=== PATIENT | male | born 1950 ===

== ENCOUNTER → 2017-01-14 | Outpatient (CLI) | payer MEDICARE ==
[~2017-01-14] MED LIST: ALLEGRA180 MG PO; AMARYL4 MG PO; ASPIRIN325 MG PO; CRESTOR40 MG PO; FISH OIL 1,0001 EACH PO; GLUCOPHAGE1000 MG PO; LOPRESSOR50 MG PO; MUCOMYST 20200 MG/M1 PO; NEURONTIN300 MG PO; NIACIN1000 MG PO; NITROSTAT0.4 MG SL; PEPCID40 MG PO; TRADJENTA5 MG PO; ULTRACET TABLE1 EACH PO; WELCHOL 625MG625 MG PO; ZESTRIL2.5 MG PO
[2017-01-14 15:27] LABS: ANION GAP 12.8 (10.0-19.0); CALCIUM 9.3 mg/dL (8.5-10.5); CREATININE 1.5 mg/dL (0.6-1.3); POTASSIUM 4.8 mMol/L (3.7-5.1)
== END | disposition disaster alternative care site (69) ==
LOC: LGSOS 15:06
PROVIDERS: Internal Medicine Interventional Cardiology
DX: I25.10 Atherosclerotic heart disease of native coronary artery without angina pectoris (principal)

== ENCOUNTER 2017-01-26 16:01 | Inpatient (IN) | payer MEDICARE, BC ==
[~2017-01-26] VITALS: Ht 180.3 cm; Wt 101.3 kg
--- NOTE | ~2017-01-26 | ESTC ---
Cardiac Perfusion Imaging Demographics Patient Name SYLVIA Haines Gender Male Patient Number [id number] Race Visit Number [id number] Ethnicity Corporate ID Room Number G6331 Accession Number [id number] Height Date of 1950 Weight Age 66 year(s) BSA Referring Chaparro Leon BMI Physician Interpreting Chaparro Leon Date of study 01/27/2017 Physician Supervising MD/MLP Chaparro Champagne MD Technologist Ordering Physician Chaparro Leon Stress Vinay RVT, diesel truck technician RDCS Alice Álvarez RDCS, RVT Stress ECG Reading Chaparro Leon Nurse Siria Philippe RN Physician Procedure Procedure Type: Nuclear Stress Test:Cardiolite Stress Test Procedure Start time: 01/27/2017 10:30 Indications: Chest pain. Risk Factors The patient risk factors include:prior PCI on 10/26/2002;prior CABG on 05/26/2005;peripheral arterial disease, obesity, former tobacco use, treated hypercholesterolemia, treated hypertension, orally-treated diabetes mellitus, dyslipidemia, renal failure, prior heart failure , prior NE and ( years not smokin). Conclusions Summary TID. Small to medium sized anteroseptal moderate to severe reversible defect. Large inferior and inferolateral moderate to severe fixed defect most consistent with prior NE. LVEF:52%. Distal anterior and inferior moderate hypokinesis. Stress Protocols Resting ECG RSR. Pre-stress physical exam: Un changed. Predicted HR: 156 bpm ECG Findings No ECG changes suggestive of ischemia. Arrhythmias No rhythm abnormality. Symptoms SOB. Stress Interpretation SOB with Lexiscan. No ischemia. No arrythmias. Imaging Results Applied corrections - Motion correction applied High risk findings Summed scores - LV dilatation (TID) : 1.44 - Summed stress score: 18 - Summed rest score: 13 - Summed difference score: 5 Stress ejection Ejection fraction:52 % EDV :182 ml ESV :87 ml Stroke volume :95 ml LV mass :204 gr LV size:Enlarged LV LV systolic function impairment: Mild Imaging Protocols Rest Stress Isotope:Tc99m Sestamibi IV Isotope: Tc99m Sestamibi IV Isotope dose:14.2 mCi Isotope dose:40.2 mCi Date:01/27/2017 07:35 Date:01/27/2017 10:15 Technique: SPECT Technique: Gated Supine SPECT Supine IV remains in place after procedure. Procedure Medications - Regadenoson (Lexiscan) 0.4 mg IV over 10-15 sec. I.V. 0.4 mg. Medical History Admission Data Admission date: 01/26/2017 Admission Time: 20:35 Hospital Status: Inpatient. Signatures dtt: Carolyn Mayfield dtd: 01/27/17 1030 Physician Self Edit
--- NOTE | ~2017-01-26 | ER ---
PATIENT'S NAME: CASTILLO WARD [facility] AGE: 66 Y [address] [place] [facility] [place], [place] [address] LOCATION: GPCU ADMIT DATE: 01/26/2017 ER/Outpatient Report DISCHARGE DATE: FAMILY PHYSICIAN: MARCO ANTONIO SIGALA MD ATTENDING PHYSICIAN: Carolyn Mayfield Time of Arrival: 1601 hours. Time of Evaluation: 1608 hours. CHIEF COMPLAINT: Low blood pressure. HISTORY OF PRESENT ILLNESS: The patient is a 66-year-old male, who presents to the emergency department today with a chief complaint of low blood pressure. He reports this has been going on for about 14 days. They have been adjusting his medication. He has been having some dyspnea on exertion and has been undergoing workup by Dr. Mayfield. They have been adjusting his blood pressure medicines with this. He has had some dizziness and lightheadedness with these blood pressure issues. He has also been complaining of some neck pain, some left shoulder pain as well as some mild low back pain. He denies any chest pain. Denies any fevers or chills. Does have some nausea, no vomiting. No diarrhea or constipation. PAST MEDICAL HISTORY: Ggt-hcsrlgx-puhqifobu diabetes, HI, herniated disk, and dyslipidemia. PAST SURGICAL HISTORY: CABG x2 and multiple stents. SOCIAL HISTORY: The patient does have a history of tobacco use, quit 8 years ago. Denies any alcohol or illicit drug use. ALLERGIES: NO KNOWN DRUG ALLERGIES. MEDICATIONS: Please see list. INSTRUCTOR GROUND SERVICES: Carolyn Mayfield M.D. REVIEW OF SYSTEMS: All systems are reviewed by myself and are negative with the exception of PATIENT'S NAME: CASTILLO WARD [facility] AGE: 66 Y [address] ROOM: [address] [place], [place] [address] LOCATION: GPCU ADMIT DATE: 01/26/2017 ER/Outpatient Report DISCHARGE DATE: FAMILY PHYSICIAN: MARCO ANTONIO SIGALA MD ATTENDING PHYSICIAN: Carolyn Mayfield those discussed in the HPI and past medical history. PHYSICAL EXAMINATION: VITAL SIGNS: Weight 102 kg. Blood pressure 118/74, pulse 75, respiratory rate 20, temperature 97.8, and oxygen saturation 96% on room air. GENERAL: The patient is a 66-year-old male, who appears at his stated age, in no acute distress at this time. HEENT: Head is normocephalic and atraumatic. Pupils are equal, round, and reactive to light. Conjunctivae are normal. Mucous membranes moist. NECK: Supple. There is no nuchal rigidity. CARDIOVASCULAR: Regular rate and rhythm. No murmurs, rubs, or gallops. LUNGS: Clear to auscultation bilaterally. No wheezes, rales, or rhonchi. ABDOMEN: Soft, nontender, nondistended. No rebound, rigidity, or guarding. MUSCULOSKELETAL: The patient moves all 4 extremities. SKIN: Warm and dry. There are no rashes or lesions noted. LABORATORY DATA AND X-RAYS: CBC is unremarkable. Coags are unremarkable. CMP: Sodium 133, BUN 49, creatinine 2.3, glucose 388. LFTs are normal. Magnesium is normal. Cardiac enzymes are normal. ProBNP is 326. D-dimer is normal. EKG is obtained, it is interpreted by myself and shows sinus rhythm with a rate of 77, normal axis, QTc is normal. No ST elevation or ST depression. There are nonspecific T-waves. There are Q-waves in III and aVF. Chest x-ray shows no acute process. Echocardiogram that was performed on , the report is reviewed by myself and does show an EF of 40% to 45%. IMPRESSION: 1. Dyspnea on exertion. 2. Acute kidney injury. 3. Orthostatic hypotension. 4. Initial visit. EMERGENCY DEPARTMENT COURSE: The patient is brought back to the examination room. Seen and evaluated by myself. IV is established. Laboratory analysis and imaging are obtained as described above. The patient is given 4 baby aspirin. Orthostatic blood pressures are obtained and are positive with lying down 133/71 with pulse of 72, sitting up 118/62 with pulse of 72, standing up 89/52 with pulse of 75. The patient is given a liter of normal saline. I have discussed the results with the patient. We will obtain a 2-hour cardiac enzymes. I have discussed the case with Dr. Pretty at shift change. He will follow up on 2-hour cardiac enzymes. Please see his dictation. DISPOSITION: Per Dr. Pretty. PATIENT'S NAME: CASTILLO WARD [facility] AGE: 66 Y [address] ROOM: [address] [address] [facility] ADMIT DATE: 01/26/2017 ER/Outpatient Report DISCHARGE DATE: FAMILY PHYSICIAN: MARCO ANTONIO SIGALA MD ATTENDING PHYSICIAN: Carolyn Mayfield DO SHERRY MATHIAS/sarah /[id number] d: 01/27/17833 t: 02/05/17 192, OUTPATIENT REPORT
--- NOTE | ~2017-01-26 | DS ---
PATIENT'S NAME: CASTILLO WARD [facility] AGE: 66 Y [address] ROOM: [address] [address] LOCATION: GPCU ADMIT DATE: 01/26/2017 Discharge Summary DISCHARGE DATE: 01/29/2017 FAMILY PHYSICIAN: Sunil Carrasco MD ATTENDING PHYSICIAN: Carolyn Mayfield DISCHARGE DIAGNOSES: 1. Coronary artery disease, status post coronary artery bypass grafting and multiple PCI in the past. His EF is about 45%. His cardiac catheterization shows one of his two bypasses is open now. 2. Elevated lipids. 3. Ex-smoker. 4. Shortness of breath secondary to chronic obstructive pulmonary disease plus his cardiac conditions. 5. Chronic kidney disease. 6. Chronic back pain. 7. Type 2 diabetes, not under good control. 8. Family history of coronary artery disease. 9. Atrial fibrillation postoperatively after his bypass grafting. 10. Degenerative joint disease of spine. 11. Weight loss of about 25 to 30 pounds since October, etiology of which is unclear as his appetite has been good. DISCHARGE RECOMMENDATIONS: 1. 1800-calorie diabetic diet. 2. Activity as tolerated for now. 3. Follow up with Dr. Davila in 1 month. 4. Follow up with myself in 2 weeks. 5. Before his followup appointment, I have recommended a full PFTs. DISCHARGE MEDICATIONS: 1. Metformin 1 g in the evening and 500 mg every morning. Hold for 48 hours before taking metformin after his cardiac catheterization. 2. Aspirin 325 mg a day. 3. Glimepiride 6 mg twice a day. 4. Berwick-3 3000 mg twice a day. 5. Rosuvastatin 40 mg a day. 6. Metoprolol 50 mg twice a day. 7. Fexofenadine 180 mg every day. 8. Nitroglycerin 0.4 mg sublingual p.r.n. chest pain. 9. Tylenol with tramadol 1 to 2 tablets twice a day as needed. 10. Niacin 2 g every day. 11. Linagliptin 5 mg 2 a day. 12. Gabapentin 300 mg twice a day. 13. Mucomyst for 48 hours longer. PATIENT'S NAME: CASTILLO WARD [facility] AGE: 66 Y [address] ROOM: [address] [address] [facility] ADMIT DATE: 01/26/2017 Discharge Summary DISCHARGE DATE: 01/29/2017 FAMILY PHYSICIAN: Sunil Carrasco MD ATTENDING PHYSICIAN: Carolyn Mayfield 14. Welchol 2 g twice a day. 15. Famotidine 40 mg once a day. 16. Lisinopril 2.5 mg a day. COURSE IN THE HOSPITAL: The patient presented to the emergency room with a lot of back pains as well as some left shoulder pain along with shortness of breath. As he is a vasculopath, he was hospitalized to rule out VA, which he did. He was also somewhat hypotensive when he was in the hospital, so significant readjustment of his blood pressure medications were done especially his enalapril. He was seen by the Hospitalist, who managed his diabetes. As it became clear that he really needed to probably proceed with cardiac catheterization, Nephrology's were involved as he had stage III CKD. X-rays of his back showed mostly DJD and some herniated disks. He was not significantly orthostatic even though he was running a lower blood pressure with systolic blood pressures in the low normal range. Following his cardiac catheterization report, the initial plan is to treat him aggressively with medications and then evaluating for other causes of his shortness of breath. MD RONI WILSON/sarah /[id number] d: 02/01/172027 t: 02/04/17 0745, DISCHARGE SUMMARY
--- NOTE | ~2017-01-26 | HP ---
PATIENT'S NAME: CASTILLO ANGEL [facility] AGE: 66 Y [address] ROOM: [address] [place], [place] [address] [facility] ADMIT DATE: 01/26/2017 History & Physical DISCHARGE DATE: FAMILY PHYSICIAN: MARCO ANTONIO SIGALA MD ATTENDING PHYSICIAN: Carolyn Mayfield DATE OF SERVICE: 01/26/2017 HISTORY OF PRESENT ILLNESS: Mr. Angel is a 66-year-old male patient whom I saw on January 14 for reestablishing with me. He has a prior history of multiple MIs involving the inferior wall, followed by stenting procedures. Eventually, in 2004, he underwent coronary artery bypass grafting and has been doing reasonably well. Since May of 2016, he has been noticing a fair amount of neck pain and also pain across the top of his shoulders when he uses his upper extremities to work with. He also has low back pain as well which makes for a lot of different kinds of pain symptoms. His stamina and shortness of breath are also worse. Currently, he seems to be in Functional Class II to III with no paroxysmal nocturnal dyspnea or orthopnea. If he is using his upper extremities to work, the pain across the top of the shoulder starts, and it stops him at some point fairly quickly. He is on maximal beta blockade. His significant other, who is with him, states that his blood pressures tend to run rather low, sometimes as low as 70s to 80s systolic. Whenever he had MS before, his pains were mostly across the shoulders and coming around to the front, associated with nausea. He denies any lightheadedness, even though he is dizzy. He has no syncope, palpitations, or ankle swelling. The patient has a history of type 2 diabetes; elevated cholesterol, which is hard to decrease; ongoing tobaccoism until 2002; and significant family history of premature coronary artery disease. He also has peripheral vascular disease. His blood pressure has been normal. He has no prior definitive history of congestive heart failure I know of, and he does not recall having atrial fibrillation diagnosed at any time. He denies rheumatic fever or heart murmur as well. His last echocardiogram in December of 2016 showed ejection fraction of about 45%. MEDICATIONS: 1. Aspirin 325 mg a day. 2. Mary 180 mg a day. PATIENT'S NAME: CASTILLO ANGEL [facility] AGE: 66 Y [address] ROOM: [place] [address] LOCATION: GPCU ADMIT DATE: 01/26/2017 History & Physical DISCHARGE DATE: FAMILY PHYSICIAN: MARCO ANTONIO SIGALA MD ATTENDING PHYSICIAN: Carolyn Mayfield 3. Amaryl 2.5 mg b.i.d. 4. Tradjenta 10 mg a day. 5. Metformin 1500 mg every morning and 1000 mg in the evening. 6. Metoprolol 75 b.i.d. 7. Niacin 2 g b.i.d. 8. Nitroglycerin as needed. 9. Knapp-3 fatty acids. 10. Rosuvastatin 40 mg a day. 11. Tramadol 50 mg p.r.n. ALLERGIES: NO KNOWN DRUG ALLERGIES. PAST MEDICAL HISTORY: 1. DJD. 2. Rotator cuff surgery. 3. History of neuropathy. 4. Appendectomy. 5. History of cardioversion from atrial fibrillation after his bypass surgery. SOCIAL HISTORY: The patient lives with his girlfriend. He denies abusing alcohol. His appetite has been poor. Weight has been coming down a little bit. Sleep is fair. FAMILY HISTORY: Positive for premature coronary artery disease in his mother. REVIEW OF SYSTEMS: A 12-point review of systems reveals: 1. Lack of energy. 2. History of vision problems with some dizziness brought on by bright lights. 3. Allergies. 4. Joint pains and back pains. 5. Muscle aches. 6. Occasional rash. 7. Loss of balance. PHYSICAL EXAMINATION: VITAL SIGNS: His blood pressure is 110/70, heart rate is in the 70s and regular, and respirations are 18. HEENT: Normal. NECK: Supple with no JVD, thyromegaly, lymphadenopathy, or carotid bruit. PATIENT'S NAME: CASTILLO ANGEL [facility] AGE: 66 Y [address] ROOM: [place] [address] LOCATION: GPCU ADMIT DATE: 01/26/2017 History & Physical DISCHARGE DATE: FAMILY PHYSICIAN: MARCO ANTONIO SIGALA MD ATTENDING PHYSICIAN: Carolyn Mayfield CARDIAC: PMI is not well located. First and second heart sounds are regular. There are no added sounds or murmurs. CHEST: Clear to auscultation. ABDOMEN: Soft and nontender. EXTREMITIES: No edema. CENTRAL NERVOUS SYSTEM: Intact. ASSESSMENT: 1. Atypical symptoms as far as heart is concerned. 2. The patient is a previous vasculopath. He had really well-controlled cholesterol levels, but I think he discontinued WelChol which seemed to be the most effective drug for him to lower his LDL level. Unfortunately, the LDL level has gone up again. 3. Dizziness, probably secondary to vestibular or neurological problems. 4. Hypotension, probably due to his medications. So, his enalapril was held when he was last seen on January 14 in the office. 5. The patient is currently pain-free. RECOMMENDATIONS: We will rule him out for MS and do a stress test. In the meantime, we will have the hospitalist see him regarding his back pains to see whether they can identify a problem. MD RONI WILSON/sarah /[id number] D: 326 T: 605 HISTORY & PHYSICAL
--- NOTE | ~2017-01-26 | ER ---
PATIENT'S NAME: CASTILLO WARD [facility] AGE: 66 Y [address] ROOM: [address] [place], [place] [address] LOCATION: GPCU ADMIT DATE: 01/26/2017 ER/Outpatient Report DISCHARGE DATE: FAMILY PHYSICIAN: MARCO ANTONIO SIGALA MD ATTENDING PHYSICIAN: Carolyn Mayfield HISTORY OF PRESENT ILLNESS: This patient is a 66-year-old male who came in with orthostatic hypotension with intermittent systolic blood pressure into the mid 80s along with pain across his upper back, neck, and shoulder pain. The patient is known to have coronary artery disease, has had multiple myocardial infarctions, multiple caths with stenting, and 2-vessel coronary bypass graft. He had a normal echocardiogram with ejection fraction of 40% to 45% this past Thursday. Scheduled for a nuclear cardiac stress test this coming Thursday. Brought to the emergency room because of low blood pressure, dizziness, neck and shoulder pain, and upper back pain. See Dr. Arenas's dictation in regards to the patient's chief complaint, history of present illness, past medical history, physical exam, laboratory, x-ray, and EKG studies. Dr. Arenas transferred the patient's care over to me at shift change asking me to follow up with the patient's 2-hour EKG, cardiac enzymes, final diagnosis, and treatment plan. The patient's cardiac enzymes were normal x2, 2 hours apart. EKG showed no acute changes other than the lateral ischemic changes and previous myocardial infarction changes x2, 2 hours apart. The patient did have elevated BUN, creatinine, and low GFR. His D-dimer was normal. He did have orthostatic changes here in the emergency department. IMPRESSION: 1. Atherosclerotic ischemic heart disease with coronary artery disease with exertional dyspnea, orthostatic hypotension, neck, shoulder, arm, and upper back pain with some lateral ischemic changes on EKG. Cardiac enzymes were normal x2, 2 hours apart. Need to rule out acute cardiac problems possibly with nuclear stress test or cardiac catheterization. 2. Kiw-wdqeqgb-gboimwnci diabetes mellitus. 3. Chronic kidney disease. 4. Dyslipidemia. PLAN: I did discuss the patient with Dr. Mayfield. We will admit to PCU telemetry for further evaluation. Discussion ensued with the patient concerning my findings and recommendations, he understands. ZOE CASSIDY MD PATIENT'S NAME: CASTILLO WARD [facility] AGE: 66 Y [address] ROOM: [place] [address] [facility] AD[facility] DATE: 01/26/2017 ER/Outpatient Report DISCHARGE DATE: FAMILY PHYSICIAN: MARC OANTONIO SIGALA MD ATTENDING PHYSICIAN: Carolyn Mayfield/sarah /[id number] d: 01/27/17 0139 t: 01/29/17 1804, OUTPATIENT REPORT
--- NOTE | ~2017-01-26 | PUL ---
PATIENT'S NAME: CASTILLO WARD [facility] AGE: 66 Y [address] ROOM: [place] [address] LOCATION: GPCU ADMIT DATE: 01/26/2017 Pulmonary DISCHARGE DATE: 01/29/2017 FAMILY PHYSICIAN: Sunil Carrasco MD ATTENDING PHYSICIAN: Carolyn Mayfield NAME OF PROCEDURE: Overnight Pulse Oximetry DATE OF PROCEDURE: January 26 to January 27, 2017 REASON FOR EXAM: Nocturnal hypoxemia RESULTS: The test was performed on room air. The recording time was 8 hours and 40 seconds, with a total valid sampling time of 8 hours, and 24 seconds. The highest pulse was 98, lowest pulse was 54, with a mean pulse of 65. The highest SpO2 was 99%, lowest SpO2 of 84%, with a mean SpO2 of 94%. The patient spend 48 seconds with SpO2 less than 89%. The desaturation event index was normal at 4.7. PHYSICIAN INTERPRETATION: The patient does not have evidence of significant nocturnal hypoxia and would not qualify for supplemental oxygen as per Medicare criteria. TYLER SHABAZZ MD RFRoel/brenda /[id number] dtt: 01/29/17 1425 , TYLER SHABAZZ dtd: 01/29/17 1338
--- NOTE | ~2017-01-26 | CON ---
PATIENT'S NAME: CASTILLO WARD [facility] AGE: 66 Y [address] ROOM: [place] [address] LOCATION: GPCU ADMIT DATE: 01/26/2017 Consultation DISCHARGE DATE: 01/29/2017 FAMILY PHYSICIAN: Sunil Carrasco MD ATTENDING PHYSICIAN: Carolyn Mayfield DATE OF CONSULTATION: 01/28/2017 REFERRING PHYSICIAN: Mauricio Dubon MD REQUESTING PHYSICIAN: Dr. Mayfield. REASON FOR CONSULTATION: Elevated BUN and creatinine. HISTORY OF PRESENT ILLNESS: The patient is a 66-year-old white male with history of diabetes diagnosed about 5 years ago. He has a history of extensive coronary artery disease. Apparently, he had mitral infarction approximately 6 times. He had coronary artery bypass grafting twice. His baseline creatinine from 2010 was 0.9. Patient came in with angina, equivalent chest pain, and his creatinine was 1.5. Creatinine maximum was 2.3. He is scheduled to have a cardiac catheterization tomorrow. Dr. Mayfield is concerned about contrast nephropathy and asked me to see the patient for a nephrology consultation. His outpatient medication does not include any nonsteroidals or CASTILLO-2 inhibitors. He is also not on any SADIE inhibitor or ARB. REVIEW OF SYSTEMS: GENERAL: He denies any fever, chills, or rigors. HEENT: Denies any sore throat or sinus congestion. CARDIOVASCULAR: He is having pain in between his shoulder blades and especially in his neck. RESPIRATORY: Denies any shortness of breath, cough, or wheezing. GI: Denies abdominal pain, nausea, or vomiting. : Denies any dysuria or frequency. MUSCULOSKELETAL: He has pain in the neck. SKIN: Denies any allergy to seafood. Denies any lymph node enlargement or easy bruising. Denies any heat or cold intolerance. PSYCH: Denies any sadness, crying spells, poor concentration, or panic attack. ALLERGIES: NO KNOWN DRUG ALLERGIES. PRESENT MEDICATIONS: PATIENT'S NAME: CASTILLO WARD [facility] AGE: 66 Y [address] ROOM: [place] [address] LOCATION: GPCU ADMIT DATE: 01/26/2017 Consultation DISCHARGE DATE: 01/29/2017 FAMILY PHYSICIAN: Sunil Carrasco MD ATTENDING PHYSICIAN: Carolyn Mayfield 1. Metformin 1000 mg twice a day. 2. Aspirin 325 mg a day. 3. Glimepiride 6 mg twice a day. 4. Thor[place]-3 fatty acid. 5. Rosuvastatin 40 mg a day. 6. Metoprolol tartrate 75 mg twice a day. 7. Mary 180 mg a day. 8. Nitroglycerin 0.4 mg sublingual p.r.n. 9. Tramadol with acetaminophen 1-2 t.i.d. p.r.n. 10. Niacin 1000 mg two twice a day. 11. Tradjenta 10 mg daily. 12. Neurontin 300 mg twice a day. PAST MEDICAL HISTORY: Coronary artery disease, hypertension, diabetes mellitus, hyperlipidemia, degenerative joint disease of the spine. PAST SURGICAL HISTORY: Coronary artery bypass grafting, cardiac catheterization with angioplasty and stent placement. FAMILY HISTORY: Family history positive for diabetes and coronary artery disease. No family history of kidney disease or dialysis. SOCIAL HISTORY: He quit tobacco years ago. He does not drink much alcohol. He lives with his in [place], [place]. PHYSICAL EXAMINATION: GENERAL APPEARANCE: This 66-year-old, mildly obese white male, lying in the hospital bed, not in acute distress. VITAL SIGNS: Temperature 97.5, pulse 66, systolic blood pressure 106, diastolic of 63, respiratory rate of 18. HEAD: Normocephalic. HEENT: Pupils are round and equal. Normal eyelid and conjunctivae. Oral cavity clear. Moist mucosa. NECK: Trachea is central. No thyromegaly. Unable to evaluate jugular venous pulsation. HEART: Sounds are audible in all the areas without any gallop or murmur. There is no peripheral rub. Pulses regular in rhythm. LUNGS: Bilaterally clear to auscultate. No intercostal retraction. ABDOMEN: Soft, nontender. Could not palpate the liver or spleen. EXTREMITIES: He has no clubbing or cyanosis. SKIN: No sign of vasculitis. PATIENT'S NAME: CASTILLO WARD [facility] AGE: 66 Y [address] ROOM: [place] [address] LOCATION: GPCU ADMIT DATE: 01/26/2017 Consultation DISCHARGE DATE: 01/29/2017 FAMILY PHYSICIAN: Sunil Carrasco MD ATTENDING PHYSICIAN: Carolyn Mayfield LYMPHATICS: I did not examine lymphatics. HIGHER PSYCHIATRIC FUNCTION: He has normal speech and memory. LABORATORY DATA: WBC 7.8, hemoglobin 14.4, hematocrit 43, platelet count 195. Glucose 338, BUN 35, creatinine 1.5, sodium 136, potassium 4.3, chloride 103, bicarb 23, calcium 9.2. His urinalysis did not show any proteinuria. ASSESSMENT: 1. Acute kidney injury. The patient had baseline creatinine of 0.9 in 2010, creatinine is up to 1.5 on admission and the maximum was 2.3. Patient's reports that she has been checking his blood pressure for the last one week and he has had systolic blood pressure as low as 70s. 2. Diabetes mellitus. 3. Coronary artery disease. 4. Hypertension. 5. Hyperuricemia. 6. Hyperlipidemia. PLAN: I explained to the patient that currently his kidneys are working about 50% of what it should have been for his age. His creatinine could be because of his hypotensive episode. He needs a cardiac catheterization and he is at high risk of having contrast nephropathy. Will use Mucomyst and intravenous bicarbonate per protocol. He is not on an SADIE inhibitor. I will request to use minimum dose of intravenous contrast, and if he needs intervention, then we can do it at a different setting rather than in the same setting. I will order renal ultrasound to look at his renal anatomy. I would like to thank Dr. Mayfield for allowing me to participate in this patient's care. M MD AMADOR MCKENNAI/sarah /[id number] CC: Carolyn Mayfield MD d: 01/29/17 0044 t: 02/11/17 1547, CONSULTATION REPORT
--- NOTE | ~2017-01-26 | CATH ---
Cardiac Diagnostic Report Demographics Patient Name SYLVIA Haines Gender Male Date of 1950 Age 66 year(s) Patient Number [id number] Date of Study 01/28/2017 Visit Number [id number] Room Number G6[address] [place] [id number] Ht 180.34 cm Wt 101.3 kg Referring Bayleejennifer Mauricio Hurtado MD Primary Physician Physician Danilo Smith MD Performing [place] Secondary Physician Physician Carolyn HICKS Diagnostic [place] Assisting Physician Physician Carolyn HICKS Interventional Physician Finisher Accordion Physician Findings and Conclusions Diagnostic Findings and Conclusion LVEDP 11 [place] RCA 100% SVG to RCA 100% Mild diffuse disease involving left system. MCKENZIE ti LAD patent Diagnostic Recommendations Aggressive secondary preventive measures. Procedure Description The patient was brought to the diagnostic cardiac catheterization-EP laboratory in the fasting, non-sedated state. Informed consent was obtained in the written and verbal form after the risks and benefits were explained. The patient had no further questions and agreed to proceed. The planned puncture-incision site(s) were shaved and prepped with ChloraPrep and draped in the usual sterile manner. Conscious sedation, supplemental oxygen, and pain control medications were delivered by a registered nurse under physician guidance. Surface ECG rhythm, blood pressure measurement, and pulse oximetry were monitored throughout the procedure. Arterial access. The access site was infiltrated with lidocaine. The vessel was entered with the Seldinger technique. A sheath was advanced into the vessel and used for catheter placement. Selective left coronary angiography. A catheter was advanced into the left coronary vessel ostium under Fluoroscopic guidance. Contrast was injected by hand. Images were obtained in multiple projections. Selective right coronary angiography. A catheter was advanced into the right coronary vessel ostium under fluoroscopic guidance. Contrast was injected by hand. Images were obtained in multiple projections. Selective MCKENZIE graft angiography. A catheter was advanced into the left internal mammary graft ostium under fluoroscopic guidance. Contrast was injected by hand. Images were obtained in multiple projections. Left heart catheterization. A catheter was advanced across the aortic valve to the left ventricle under fluoroscopic guidance. Resting hemodynamics were obtained. Arterial artery hemostasis. Hemostasis was achieved. The patient was transferred to a regular nursing floor via cart accompanied by a nurse. The patient left the laboratory in stable condition. Diagnostic Cath Status: Urgent Procedure Procedure Type Indications: Positive nuclear perfusion study and back pain with exertion. The procedure was explained in detail to the patient. Risks, complications and alternative treatments were reviewed. Written consent was obtained. Medications Reviewed with Patient prior to Procedure. Angiographic Findings Dominance: Right Cardiac Arteries and Lesion Findings LMCA: Abnormal. Lesion on LMCA: Distal subsection.50% stenosis . LAD: Abnormal.The 1st Diag appears abnormal. The 2nd Diag appears abnormal. Lesion on Dist LAD: 100% stenosis . Lesion on 1st Dia% stenosis .The lesion was diffuse. Lesion on 2nd Dia% stenosis .The lesion was diffuse. LCx: Abnormal. RCA: Lesion on Prox RCA: 100% stenosis . Comments:Calcification involving proximal coronaries . Stent seen in RCA. Graft Lesions Lesion on MCKENZIE to Dist LAD: Proximal anastomosis.100% stenosis . Cardiac Grafts - There is a graft that originates at the MCKENZIE and attaches to the Dist LAD (The MCKENZIE graft is patent.). - There is a graft that originates at the Aorta Right and attaches to the 1st RPL (The SVG graft is occluded 100% in 2009). Coronary Tree Procedure Data Procedure Date Date: 01/28/2017Start: 04:10 PMEnd: 04:39 PM Entry Locations - Retrograde Percutaneous access was performed through the Left Femoral artery (Primary location). A 7 Fr sheath was inserted. Hemostasis was successfully obtained using Perclose ProGlide (Cifuentes). Closure Comments: Adrian closure. Procedure Medications Order and Administration + + + + + !Time !Medication !Dosage !Route ! + + + + + !01/28/2017 04:02 PM !Versed !1 mg !I.V. ! + + + + + !01/28/2017 04:07 PM !Fentanyl !50 mcg !I.V. ! + + + + + !01/28/2017 04:24 PM !D5W/0.9% NaCl w/20mEq KCl !150 ml/hr !I.V. drip ! + + + + + Devices Used - A6 Fr. BS JL 4 Diag. Catheterwas used for:Left coronary angiography. - A6 Fr. BS JR 4 Diag. Catheterwas used for:MCKENZIE. Contrast Material - Isovue 20922 ml Fluoroscopy Time: Diagnostic: 4:54 minutes. Total: 4:54 minutes. Fluoroscopy Dose: Diagnostic: 990 mGy. Total: 990 mGy. Estimated Blood Loss: 15 ml. Medical History Performed Procedures and Imaging Results - Stress testing with SPECT MPIwas performed. Results were: Positive. Risk/Extent of ischemia was: Unavailable. Allergies - No known allergies. Risk Factors The patient risk factors include:prior PCI on 10/26/2002; prior CABG on 05/26/2005;peripheral arterial disease, obesity, treated hypercholesterolemia, treated hypertension, family history of premature CAD, orally-treated diabetes mellitus, last creatinine: 1.8 mg/dl, creatinine clearance: 59.4 ml/min, dyslipidemia, renal failure, former tobacco use ( years not smokin), prior heart failure and prior OR . Admission Data Admission Date: 01/26/2017 Admission Time: 08:35 PM Admit Source: Emergency department Insurance Payors: Medicare. Admission Medications + +------+------+ + + + + !Medication !Dosage!Times !Last !Last !Administered !Comments ! ! ! !Per !Delivery !Delivery ! ! ! ! ! !Day !Date !Time ! ! ! + +------+------+ + + + + !Beta ! ! ! ! !Yes ! ! !Letitia ! ! ! ! ! ! ! !(any) ! ! ! ! ! ! ! + +------+------+ + + + + !Aspirin ! ! ! ! !Yes ! ! !(any) ! ! ! ! ! ! ! + +------+------+ + + + + Clinical Evaluation Leading to Procedure - The patient's CAD presentation was assessed as: Unstable angina. - The patient's anginal syndrome during the past two weeks was assessed as: Class III according to the [place] Cardiovascular Society Classification System (CCS). Anti-anginal medications were prescribed during the past two weeks. The medication is: Beta Blockers. Hemodynamics Condition: Rest O2 Consumption: Estimated: 254.41Heart Rate: 66 bpm Pressures (mmHg) +-----+ + !Site !Pressure ! +-----+ + !AO !93/55 (71) ! +-----+ + !AO !103/46 (68) ! +-----+ + !LV !108/4 ,11 ! +-----+ + !LV !97/2 ,6 ! +-----+ + !AO !113/56 (79) ! +-----+ + !LV !102/3 ,8 ! +-----+ + Valve Gradients and Areas + +---------+---------+---------+ +---------+ + !Valve !Peak !Mean !Area !Index !Flow !Source ! + +---------+---------+---------+ +---------+ + !Aortic !0 !0 ! ! ! ! ! + +---------+---------+---------+ +---------+ + !Aortic !0 !0 ! ! ! ! ! + +---------+---------+---------+ +---------+ + Shunts Oxygen Values O2 Capacity 195.84 O2 Consumption 254.41 Discharge Data Discharge Date: 01/29/2017 Hospital Status: Inpatient Signatures dtt: Carolyn Mayfield dtd: 01/28/17 1610 Physician Self Edit
--- NOTE | ~2017-01-26 | CON ---
PATIENT'S NAME: CASTILLO WARD [facility] AGE: 66 Y [address] ROOM: [address] [place], [place] [address] LOCATION: GPCU ADMIT DATE: 01/26/2017 Consultation DISCHARGE DATE: FAMILY PHYSICIAN: MARCO ANTONIO SIGALA MD ATTENDING PHYSICIAN: Carolyn Mayfield DATE OF CONSULTATION: 01/26/2017 REFERRING PHYSICIAN: Mauricio Dubon MD CHIEF COMPLAINT: Atypical chest pain. HISTORY OF PRESENTING ILLNESS: This 66-year-old white male with known history of coronary artery disease and diabetes mellitus type 2, who was admitted to [facility] earlier today by Dr. Mayfield with symptoms of atypical chest pain. He does have a previous history of coronary artery disease with GA x6 in the past. He has had anginal complaints, which include some neck pain and annular/bandlike chest pain. Although he has not experienced those symptoms, he has been having paroxysms of neck and arm pain, which come and go. A couple of nights ago while he was fishing, he had an episode of severe flank pain, which radiated up into his left shoulder and arm. Symptoms usually occur while he is exerting himself and improve with rest. He also experiences some paroxysms of severe neck and arm pain with positioning, that improve with rest. Today, he contacted Dr. Mayfield's office, and it was requested that he come to the emergency room. He was subsequently admitted to the hospital for definitive evaluation and management. On his arrival to the floor, he reports feeling "fine." He does complain of headache pain but it is minor. He also complains of some neck pain, which is also positional. He reports that he has to use a special pillow at home in order to sleep. He denies bryson chest pain. No abdominal pain. His appetite has been good as of late. He has been eating and drinking normally. No difficulties with chewing or swallowing. No abdominal pain. He stools and voids normally. He denies numbness or tingling in his extremities, but he does occasionally get tingling pains in the left leg. Similarly, he has paroxysms of sharp pain and tingling in the bilateral arms with positioning. This last occurred while he was resting his arms on a fish cleaning table. ALLERGIES: NO KNOWN DRUG ALLERGIES. ILLNESSES: 1. Coronary artery disease, status post coronary artery bypass grafting and PATIENT'S NAME: CASTILLO WARD [facility] AGE: 66 Y [address] ROOM: [address] [place], [place] [address] LOCATION: GPCU ADMIT DATE: 01/26/2017 Consultation DISCHARGE DATE: FAMILY PHYSICIAN: MARCO ANTONIO SIGALA MD ATTENDING PHYSICIAN: Carolyn Mayfield PCI with stents. 2. Diabetes mellitus type 2. 3. Essential hypertension. 4. Hyperlipidemia. 5. Degenerative disk disease of the spine. CURRENT MEDICATIONS: 1. Aspirin 325 mg p.o. daily. 2. Mary 180 p.o. daily. 3. Amaryl 2.5 mg p.o. b.i.d. 4. Tradjenta 10 mg p.o. daily. 5. Metformin 1500 mg p.o. q.a.m., 1000 mg p.o. q.p.m. 6. Metoprolol 75 mg p.o. b.i.d. 7. Niacin 2000 mg p.o. b.i.d. 8. Nitroglycerin p.r.n. 9. [place]-3 fatty acids with fish oil daily. 10. Rosuvastatin 40 mg p.o. daily. 11. Tramadol 50 mg p.o. daily p.r.n. pain. FAMILY HISTORY: Significant for coronary artery disease and diabetes mellitus. SOCIAL HISTORY: He is unmarried but lives with his common-law in [place]. There is no significant history of alcohol or tobacco use. REVIEW OF SYSTEMS: As per HPI. All other organ systems reviewed and are negative. PHYSICAL EXAMINATION: VITAL SIGNS: Temperature 97.7, pulse 70, respirations 16, blood pressure 115/80, weight is 101.3 kilos. GENERAL: He is anxious, but cooperative, lying in bed, no acute distress. SKIN: Supple, pink, warm, and dry. There are no obvious rashes. HEENT: Otherwise, normocephalic. Sclerae nonicteric. Pupils equal, round, and reactive to light and accommodation. Extraocular movements appear intact. Nasal turbinates normal in appearance. Oropharynx clear. Mucous membranes are pink and moist. NECK: Supple. Plethoric and obese. No masses or adenopathy. No thyromegaly. No JVD. CHEST: Wall is symmetrical. HEART: Regular without murmurs. There is normal S1 and S2. No S3 or S4. LUNGS: Diminished. No crackles or wheezes are heard. ABDOMEN: Soft and obese. Nontender. Bowel sounds are present. No mass or hepatosplenomegaly. PATIENT'S NAME: CASTILLO WARD [facility] AGE: 66 Y [address] ROOM: [address] [address] LOCATION: GPCU ADMIT DATE: 01/26/2017 Consultation DISCHARGE DATE: FAMILY PHYSICIAN: MARCO ANTONIO SIGALA MD ATTENDING PHYSICIAN: Carolyn Mayfield and RECTAL: Not done. EXTREMITIES: Display no significant clubbing, cyanosis, or edema. NEUROLOGICAL: Cranial nerves 2 through 12 appear grossly intact. Sensation appears normal. Strength is 4 to 5 out of 5 bilaterally in the upper and lower extremities. DTRs are 0 to 1+ symmetrical. Gait is not observed. LABORATORY AND X-RAY DATA: D-dimer was 0.43. ProBNP was minimally elevated at 326. A troponin I was less than 0.04. Chemistries revealed BUN and creatinine of 49 and 2.3 respectively, sodium and potassium of 133 and 4.6, chloride and CO2 of 96 and 25. AST and ALT of 15 and 26 respectively, bilirubin is 0.5. CBC showed a white blood cell count 7.8, hemoglobin is 14.4, hematocrit 43.0, platelets 185. ASSESSMENT AND PLAN: 1. Diabetes mellitus type 2. Historically controlled with oral hypoglycemics. We will plan to hold metformin in light of his acute kidney injury (see below) and utilize Accu-Cheks and sliding scale insulin while he is inpatient. We will determine whether he can be safely transitioned back to the metformin once he is closer to discharge. 2. Acute kidney injury with chronic kidney disease, stage 3. Improved with IV fluid hydration in the ER. We will follow serially. 3. Atypical chest pain. We will plan to proceed with serial enzymes and monitor on telemetry overnight. Supportive cares, which have already been initiated. Plan Lexiscan Cardiolite stress testing per Dr. Mayfield tomorrow. Consider other possible etiologies for his pain including musculoskeletal causes. 4. Degenerative disk disease of the spine. He has a known diskopathy in the lumbar spine, although I do not have any of those records available. Some of his symptoms do sound radicular including flank radiculopathy and bilateral upper extremities radiculopathy. We will surveil with plain x- ray in the morning and consider a more focused examination with MRI at some point. It is not clear if this needs to be performed while he is inpatient or perhaps could be picked up with his primary care provider on an outpatient basis. 5. Essential hypertension. Appears to be adequately controlled. He did recently have a significant change in his antihypertensive hypertensive regimen. We will follow him for now. 6. Fitful sleep. He is high risk for obstructive sleep apnea. He will have overnight trend oximetry tonight. Plan follow up on that tomorrow. Consider outpatient sleep study. 7. Deep venous thrombosis prophylaxis. Per the VTE protocol. PATIENT'S NAME: CASTILLO WARD [facility] AGE: 66 Y [address] ROOM: [place] [address] [facility] AD[facility] DATE: 01/26/2017 Consultation DISCHARGE DATE: FAMILY PHYSICIAN: MARCO ANTONIO SIGALA MD ATTENDING PHYSICIAN: Carolyn Mayfield MD DOMINIC ARRINGTON/sarah /[id number] d: 01/27/17 0502 t: 01/28/17 2153, CONSULTATION REPORT
[2017-01-26 16:17] LABS: BASOPHIL # 0.1 K/uL (0.0-0.2); BASOPHIL % 0.8 %; EOSINOPHIL # 0.4 K/uL (0.0-0.5); EOSINOPHIL % 5.4 %; HEMOGLOBIN 14.4 g/dL (11.0-16.0); IMMATURE GRANULOCYTE % 0.5 %; LYMPHOCYTE # 1.3 K/uL (0.8-4.0); LYMPHOCYTE % 17.2 %; MCHC 33.5 gm/dL (32.0-36.5); MCV 86.5 fl (83.0-98.0); MONOCYTE # 0.7 K/uL (0.0-1.0); MONOCYTE % 9.2 %; NEUTROPHIL # (ANC) 5.2 K/uL (1.4-9.0); NEUTROPHIL % 66.9 %; NRBC % 0 /100WBC (0-0.00); PLATELET COUNT 185 K/uL (150-450); RBC 4.97 M/uL (3.50-5.50); RDW-CV 13.2 % (11.9-14.6); WBC 7.8 K/uL (4.0-11.0)
[2017-01-26 16:27] LABS: INR - (THERAPEUTIC) 0.9 (0.9-1.1); PROTIME 9.8 SECONDS (9.6-11.1); PTT 26 SECONDS (25-32)
[2017-01-26 16:37] LABS: ALK PHOS 52 IU/L (33-138); ALT 26 IU/L (12-78); ANION GAP 16.6 (10.0-19.0); AST 15 IU/L (10-40); BLOOD UREA NITROGEN 49 mg/dL (6-24); CALCIUM 9.5 mg/dL (8.5-10.5); CHLORIDE 96 mMol/L (96-110); CO2 25 mMol/L (22-32); CPK 197 IU/L (35-332); CREATININE 2.3 mg/dL (0.6-1.3); MAGNESIUM 2.2 mg/dL (1.3-2.6); POTASSIUM 4.6 mMol/L (3.7-5.1); SODIUM 133 mMol/L (135-145); TOTAL BILIRUBIN 0.5 mg/dL (0.0-1.5); TOTAL PROTEIN 7.7 g/dL (6.0-8.4)
[2017-01-26 16:40] LABS: ESTIMATED GFR (MDRD EQUATION) 29
[2017-01-26 18:29] LABS: ALBUMIN 3.6 gm/dL (3.5-5.0); ANION GAP 12.6 (10.0-19.0); CALCIUM 8.7 mg/dL (8.5-10.5); CREATININE 1.8 mg/dL (0.6-1.3); POTASSIUM 4.6 mMol/L (3.7-5.1); TOTAL BILIRUBIN 0.4 mg/dL (0.0-1.5); TOTAL PROTEIN 6.9 g/dL (6.0-8.4)
[2017-01-26 18:30] LABS: CPK 173 IU/L (35-332)
[2017-01-26] MEDS ORDERED: GLUCOPHAGE1000 MG PO ×2 (22:43→22:44)
[2017-01-26] MEDS ORDERED: ASPIRIN325 MG PO (22:44)
[2017-01-26] MEDS ORDERED: AMARYL4 MG PO (22:45)
[2017-01-26] MEDS ORDERED: FISH OIL 1,0001 EACH PO (22:46)
[2017-01-26] MEDS ORDERED: CRESTOR40 MG PO (22:46)
[2017-01-26] MEDS ORDERED: LOPRESSOR50 MG PO (22:47)
[2017-01-26] MEDS ORDERED: ALLEGRA180 MG PO (22:48)
[2017-01-26] MEDS ORDERED: NITROSTAT0.4 MG SL (22:49)
[2017-01-26] MEDS ORDERED: ULTRACET TABLE1 EACH PO (22:50)
--- NOTE | 2017-01-26 22:50 | NUR ---
PATIENT ARRIVED TO FLOOR VIA WHEELCHAIR FROM ER AT 2200. VSS. IV INTACT TO LEFT INNER FOREARM. PATIENT STOOD UP AND USED RESTROOM WITH NO LIGHTHEADED/DIZZINESS. ACCORDING TO PATIENT, HE HAS BEEN HAVING INCREASED SOB ESPECIALLY R/T PAIN TO LOWER BACK RADIATING ALL THE WAY TO LEFT SHOULDER AND NECK, DECREASED BP, AND RECENT LIGHTHEADEDNESS/DIZZINESS TO THE POINT OF ALMOST PASSING OUT. PATIENT HAS BEEN SEEING DR Mendoza AND HE HAS BEEN ADJUSTING BP MEDS. LAST NIGHT PATIENT TOOK BP AT HOME AND HAD SYSTOLIC READING OF 70'S. PATIENT WENT BACK TO BED. IN AM, CONVINCED PATIENT TO GO TO ER. DR Mendoza SEEN IN ER. EKG SHOWED ISCHEMIA BUT MAY BE RELATED TO PAST HISTORY. PATIENT ADMITTED OVERNIGHT FOR OBSERVATION. PATIENT HAS PAST MEDICAL HISTORY OF HTN, ABOUT 15 STENT PLACEMENTS, CABG. AND DIABETES. PATIENT TO HAVE STRESS TEST IN AM.
[2017-01-26] MEDS ORDERED: NIACIN1000 MG PO (22:52)
[2017-01-26] MEDS ORDERED: TRADJENTA5 MG PO (22:53)
[2017-01-27 02:11] LABS: BILIRUBIN URINE NEGATIVE (NEGATIVE); BLOOD URINE NEGATIVE /UL (NEGATIVE); COLOR URINE YELLOW (YELLOW); GLUCOSE URINE 1000 mg/dL (NEGATIVE); KETONE URINE NEGATIVE (NEGATIVE); LEUKOCYTES URINE NEGATIVE /UL (NEGATIVE); NITRITE URINE NEGATIVE (NEGATIVE); PROTEIN URINE NEGATIVE (NEGATIVE); SPEC GRAVITY URINE 1.015 (1.003-1.035); TURBIDITY URINE CLEAR (CLEAR); UROBILINOGEN URINE NORMAL (NORMAL)
--- NOTE | 2017-01-27 04:45 | NUR ---
Significant Event: PATIENT IS A/O X3. VSS. HR 60-70'S. SBP 110-120'S. AFEBRILE. 02 SATS IN MED TO UPPER 90'S ON RA. C/O PAIN TO LOWER BACK WHEN GETTING UP. RADIATES TO LEFT SHOULDER AND NECK AREA. PLAN FOR SPINAL XRAY IN AM. LUNGS CLEAR THROUGHOUT. UP AD NANCY TO RESTROOM. BOWELS ACTIVE. VOIDS PER RESTROOM. IV TO LEFT INNER FOREARM SL. ON ACHS ACCUCHECKS. PATIENT SEEMS OBLIVOUS ABOUT INSULIN. 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 PATIENT HAD TREND OX STUDY BUT UP ALL NIGHT. NPO SINCE MIDNIGHT. Follow up: STRESS TEST IN AM. POSSBILY HOME TODAY?
--- NOTE | 2017-01-27 10:00 | NUR ---
Diabetes Consult: Patient with an A1C of 10.8%. Patient reports that 6 months prior his A1C is "7 something". Patient reports he has been taking amaryl 2.5 mg twice daily, Tradjenta and Metformin 1500 in the morning and 1000 at night. Patient states he does not omit any doses and tests blood sugars up to four times daily when he is home. 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 When working he tests blood sugars once daily, first thing in the morning. The patient reports that his amaryl dose used to be 4 mg twice daily. He is concerned about needing to start insulin and keeping his job. Explained to the patient that while he is hospitalized, his blood sugars will be controlled with the use of insulin. The patient's creatinine is improving to 1.8, but discussed with the patient that oral glycemics are filtered through the kidneys. Explained that we will continue to watch kidney function to determine if it is safe for him to resume oral glycemics prior to discharge. The patient understood this explanation and seemed to be more at ease at the thought of taking Novolog moderate correction scale while hospitalized. The patient is planning to establish care with Dr. Carrasco upon discharge. He was provided with the diabetes survival skills assessment to complete. Will continue to follow.
[2017-01-27] MEDS ORDERED: NEURONTIN300 MG PO (12:23)
--- NOTE | 2017-01-27 19:03 | NUR ---
ORTHOSTATICS DONE THIS MORNING WITH FIRST ASSESSMENT. PATIENT WAS NPO UNTIL NUCLEAR MED INJECTED FOR STRESS TEST. PATIENT WENT DOWN FOR STESS TEST AT 1030 AND RETURNED AROUND 1130. PATEINT WENT DOWN FOR SECOND SET OF PICTURES IN THE EARLY AFTERNOON. PATIENT REFUSED INSULIN THROUGHOUT THE DAY EVEN THOUGH BLOOD SUGAR WAS HIGH PER MODERATE SLIDING SCALE. PATIENT REQUESTED TO SPEAK TO DOCTOR ABOUT INSULIN. DR LEACH CONSULTED FOR DECREASED KIDNEY FUNCTION. POSSIBLE HEART CATH TOMORROW AT 1500. PATIENT'S FAMILY HAS BEEN IN THE ROOM THROUGHOUT THE DAY. PATIENT RECEIVED MUCOMYST THIS EVENING FOR KIDNEYS. PATIENT HAD XRAY OF LUMBAR, THORACIC, AND CERVICAL SPINE DURING SECOND SET OF STRESS TEST PICTURES. PATIENT REPORTS SOME LOWER BACK PAIN WHEN HE WALKS, AND PAIN IS RELIEVED WHEN HE RESTS IN BED.
--- NOTE | 2017-01-28 04:13 | NUR ---
Significant Event: PATIENT IS A/O X3. VSS. HR 60'S. SBP 100-130'S. AFEBRILE. 02 SATS IN MID TO UPPER 90'S ON RA. C/O PAIN WITH AMBULATION BUT FINE WHEN RESTING. LUNGS CLEAR THROUGHOUT. UP AD NANCY TO RESTROOM. VOIDS PER URINAL. BOWELS ACTIVE. IV TO LEFT INNER FOREARM SL. ON ACHS ACUCCHECKS. ACCUCHECK OF 366 AND PATIENT REFUSED INSULIN. EDUCATED ON IMPORTANCE OF TAKING SQ INSULIN IF NEEDED. PATIENT MAY NEED A TRANSPORTATION WORKER TO GO OVER INSULIN ISSUES. CLEAR LIQUID BREAKFAST AND NPO AFTER 0600. Follow up: CONTINUE TO MONITOR. HEART CATH IN AFTERNOON.
[2017-01-28 04:51] LABS: CALCIUM 9.2 mg/dL (8.5-10.5); CREATININE 1.5 mg/dL (0.6-1.3)
[2017-01-28 04:53] LABS: ANION GAP 14.3 (10.0-19.0); MAGNESIUM 2.1 mg/dL (1.3-2.6)
[2017-01-28 04:54] LABS: POTASSIUM 4.3 mMol/L (3.7-5.1)
--- NOTE | 2017-01-28 14:16 | NUR ---
[facility] note: [id number] Patient and significant other present at the time. They report having used a [employer] meter at home to check blood sugars and report that they use the ankle area for obtaining blood sugar. 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 ??? accuracy of home testing, as we will have to check to see if the meter company approves this location for alternative site testing of blood sugar? A1C was 10.8 %. 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 Lengthy discussion and patient is open to suggestions, plans to seek Dr. Carrasco as new primary care provider due to insurance coverage. Recommended on-going support with diabetes management from [facility] or Linnette Hurtado RN, CDE at [facility]. Patient had been refusing insulin injections with blood sugar in 300's here. Discussed need for proper control, affects of current stress, chest pain and other factors. Plans for Heart cath, awaiting procedure this afternoon.
--- NOTE | 2017-01-28 17:28 | NUR ---
PATIENT WAS ON CLEAR LIQUID DIET THIS MORNING AND AFTER BREAKFAST WAS NPO STATUS. PATIENT REFUSED INSULIN THIS MORNING WITH A BS OF 330. DR HOGAN TALKED WITH PATIENT ABOUT TAKING INSULIN AND PATIENT ACCEPTED INSULIN AT 1100. HE RECEIVED 12 UNITS AT 1100 FOR BS OF 359, AND RECEIVED 2 UNITS AT 1700 FOR BS OF 180. PATIENT REPORTED SWELLING IN LEFT ARM AT 1510, FURTHER ASSESSMENT SHOWED IV INFILTRATION WHILE RUNNING BICARB. NEW IV WAS PLACED AT 1515 IN RIGHT WRIST AND OLD IV WAS DC'D AT 1530. PATIENT WAS TAKEN DOWN FOR HEART CATH AT 1545 AND RETURNED AT 1640. PROCEDURE WAS DONE ON LEFT GROIN. DRESSED WITH GAUZE AND TEGADERM. DRESSING IS DRY AND INTACT. BICARB RUNNING AT 150ML/HR. PATIENT'S FAMILY HAS BEEN IN ROOM THROUGHOUT THE DAY.
[2017-01-28] MEDS ORDERED: MUCOMYST 20200 MG/M1 PO (21:40)
[2017-01-28] MEDS ORDERED: WELCHOL 625MG625 MG PO (21:42)
[2017-01-28] MEDS ORDERED: PEPCID40 MG PO (21:43)
[2017-01-28] MEDS ORDERED: ZESTRIL2.5 MG PO (21:45)
--- NOTE | 2017-01-28 23:53 | NUR ---
PATIENT DISCHARGED TO HOME AT 2315. PATIENT ACCOMPANIED BY STAFF DOWN BY WHEELCHAIR AND SEE GOING INTO VEHICLE WITH DRIVING. VSS. IV D/C'D AND INTACT. PATIENT EDUCATION COMPLETE ON F/U APPOINTMENTS WITH DR Mendoza, DR PELAYO, AND DR LEACH. EDEUCATION ALSO COMPLETED ON NEW, OLD, CHANGED MEDS, S/S OF INFECTION AT CATH PROCEDURE SITE OR IV SITE, CARES FOR CATH SITE, AND ACTIVITY/DIET.
== END 2017-01-29 00:02 | disposition disaster alternative care site (69) | DRG 305 ==
LOC: GMED 16:01 → GPCU 20:35
PROVIDERS: Emergency Medicine; Family Medicine; Hospitalist; ADMIT Internal Medicine Interventional Cardiology
DX: I13.10 Hypertensive heart and chronic kidney disease without heart failure, with stage 1 through stage 4 chronic kidney disease, or unspecified chronic kidney disease (principal); E11.22 Type 2 diabetes mellitus with diabetic chronic kidney disease; N18.3 Chronic kidney disease, stage 3 (moderate); I25.810 Atherosclerosis of coronary artery bypass graft(s) without angina pectoris; I48.91 Unspecified atrial fibrillation; I25.2 Old myocardial infarction; I95.1 Orthostatic hypotension; E78.5 Hyperlipidemia, unspecified; E79.0 Hyperuricemia without signs of inflammatory arthritis and tophaceous disease; Z87.891 Personal history of nicotine dependence; Z90.49 Acquired absence of other specified parts of digestive tract; Z95.1 Presence of aortocoronary bypass graft; Z79.82 Long term (current) use of aspirin; Z79.4 Long term (current) use of insulin; Z79.899 Other long term (current) drug therapy
CPT/HCPCS: A9270; A9500; C1760; G0378; J1644; J2250; J2785; J3010; J7030; J7060

== ENCOUNTER → 2017-04-16 | Outpatient (CLI) | payer MEDICARE, BC | END | disposition disaster alternative care site (69) | LOC: LGSOS 11:25 | DX: I25.10 Atherosclerotic heart disease of native coronary artery without angina pectoris (principal) ==

== ENCOUNTER → 2017-04-16 | Outpatient (CLI) | payer MEDICARE, BC ==
[2017-04-16 12:13] LABS: TOTAL PROTEIN 7.5 g/dL (6.0-8.4)
[2017-04-16 12:15] LABS: TOTAL BILIRUBIN 0.5 mg/dL (0.0-1.5)
== END | disposition disaster alternative care site (69) ==
LOC: LGSOS 11:36
PROVIDERS: Internal Medicine Interventional Cardiology
DX: I25.10 Atherosclerotic heart disease of native coronary artery without angina pectoris (principal)